=== PATIENT | female | born 2000 | race Caucasian/White ===

== ENCOUNTER 2020-04-02 20:27 | Emergency (ER) | payer OTHER ==
[~2020-04-02] VITALS: Ht 152.4 cm; Wt 73.9 kg
--- NOTE | 2020-04-02 21:00 | NUR ---
PATIENT LEFT WITHOUT BEING SEEN BY ARLEEN PAZ. NO FURTHER CARE PROVIDED FOR PATIENT.
[2020-04-02 21:01] VITALS: BP 115/80
[2020-04-02 22:26] VITALS: BP 115/80
== END 2020-04-02 21:00 | disposition left against medical advice (07) ==
LOC: MED 20:27
DX: K08.89 Other specified disorders of teeth and supporting structures (principal); Z53.21 Procedure and treatment not carried out due to patient leaving prior to being seen by health care provider